=== PATIENT | female | born 1945 | race Caucasian/White ===

== ENCOUNTER 2018-11-16 08:45 | Inpatient (IN) | payer MEDICARE, BC ==
[~2018-11-16] VITALS: Ht 157.5 cm; Wt 80.9 kg
[~2018-11-16 08:45] MED LIST: BUPIVACAINE/PF 0.5% ONE; EPINEPHRINE 1 MG/ML, 1ML ONE; KETOROLAC 60 MG/2 ML ONE; LIDOCAINE 1%, 20ML ONE; ROPIvacaine/PF 0.2%, 20 ML ONE; SODIUM CHLORIDE 0.9% 50 ML ONE; TRANEXAMIC ACID 100 MG/ML, 10ML ONE; VANCOMYCIN 1,000 MG ONE
[2018-11-16] MEDS ORDERED: VANCOMYCIN PER PHARMACY MC STA (12:02)
[2018-11-16] MEDS ORDERED: ACETAMINOPHEN 500 MG TABLET PO ONE (12:30)
[2018-11-16] MEDS ORDERED: LACTATED RINGERS 1,000 ML IV SCH (12:30)
[2018-11-16] MEDS ORDERED: GABAPENTIN 300 MG CAPSULE PO ONE (12:30)
[2018-11-16] MEDS ORDERED: METF500T17 PO (12:45)
[2018-11-16] MEDS ORDERED: TRAZADONE PO (12:45)
[2018-11-16] MEDS ORDERED: TOPI25TA32 PO (12:45)
[2018-11-16] MEDS ORDERED: FLUO40CA9 PO (12:45)
[2018-11-16] MEDS ORDERED: CEPH-368 PO (12:45)
[2018-11-16] MEDS ORDERED: ATOR20TA86 PO (12:45)
[2018-11-16] MEDS ORDERED: MELO7.5T31 PO (12:45)
[2018-11-16] MEDS ORDERED: DOCU240C53 PO (12:45)
[2018-11-16] MEDS ORDERED: TRAM50TA2 PO (12:45)
[2018-11-16] MEDS ORDERED: RANI150T23 PO (12:45)
[2018-11-16] MEDS ORDERED: SULF1TAB24 PO (12:45)
[2018-11-16] MEDS ORDERED: LISI5TAB7 PO (12:45)
[2018-11-16] MEDS ORDERED: FENO43CA3 PO (12:45)
[2018-11-16] MEDS ORDERED: ACET500T76 PO (12:45)
[2018-11-16] MEDS ORDERED: ASPI-496 PO (12:45)
[2018-11-16 12:55] VITALS: BP 146/72
[2018-11-16] MEDS ORDERED: VANCOMYCIN 1,500 MG in SODIUM CHLORIDE 0.9% 250 ML IV ONE (13:00)
[2018-11-16] MEDS ORDERED: MIDAZOLAM 1 MG/ML, 2ML ONE (14:21)
[2018-11-16] MEDS ORDERED: FENTANYL PF 250 MCG/5ML ONE (14:22)
[2018-11-16] MEDS ORDERED: METHYLENE BLUE 50 MG/10 ML AMP ONE (14:29)
[2018-11-16] MEDS ORDERED: VANCOMYCIN 1,000 MG ONE (14:55)
[2018-11-16] MEDS ORDERED: CEFAZOLIN 1,000 MG ONE (15:28)
[2018-11-16] MEDS ORDERED: PROPOFOL 10 MG/ML, 20ML ONE (15:28)
[2018-11-16] MEDS ORDERED: DEXAMETHASONE 4 MG/ML, 5ML ONE (15:28)
[2018-11-16] MEDS ORDERED: ONDANSETRON 2MG/ML, 2ML ONE (15:28)
[2018-11-16] MEDS ORDERED: SUCCINYLCHOLINE 20 MG/ML, 10ML ONE (15:28)
[2018-11-16] MEDS ORDERED: ROCURONIUM 10 MG/ML,10ML ONE (15:28)
[2018-11-16] MEDS ORDERED: LORazepam 2 MG/ML, 1ML IVPush PRN (16:00)
[2018-11-16] MEDS ORDERED: hydrALAzine 20 MG/ML, 1ML IV PRN (16:00)
[2018-11-16] MEDS ORDERED: MORPHINE SULFATE 4 MG/ML, 1ML IVPush PRN (16:00)
[2018-11-16] MEDS ORDERED: LABETALOL 5MG/ML, 20ML IV PRN (16:00)
[2018-11-16] MEDS ORDERED: MEPERIDINE/PF 25MG/0.5ML IVPush PRN (16:00)
[2018-11-16] MEDS ORDERED: FENTANYL PF 100 MCG/2ML IV PRN (16:00)
[2018-11-16] MEDS ORDERED: OXYcodone 5 MG/5 ML ORAL.SOL UDC PO PRN (16:00)
[2018-11-16] MEDS ORDERED: METOCLOPRAMIDE 5 MG/ML, 2ML IV PRN (16:00)
[2018-11-16] MEDS ORDERED: VANCOMYCIN 1,000 MG IM ONE (16:24)
[2018-11-16] MEDS: SODIUM CHLORIDE 0.9% 1,000 ML IV SCH (17:54)
[2018-11-16] MEDS ORDERED: HYDROcodone/APAP 5/325 TABLET PO PRN (18:00)
[2018-11-16] MEDS ORDERED: LORazepam 1MG TABLET PO PRN (18:00)
[2018-11-16] MEDS ORDERED: HYDROmorphone 1 MG/ML, 1ML INJ IV PRN (18:00)
[2018-11-16] MEDS ORDERED: BISACODYL 10 MG SUPP PR PRN (18:00)
[2018-11-16] MEDS ORDERED: ZOLPIDEM 5MG TABLET PO PRN (18:00)
[2018-11-16] MEDS ORDERED: ALUMINUM/MAG/SIMETHICONE 30 ML UDC PO PRN (18:00)
[2018-11-16] MEDS ORDERED: DIAZEPAM 5 MG TABLET PO PRN (18:00)
[2018-11-16] MEDS ORDERED: PROMETHAZINE 25 MG/ML, 1ML IM PRN (18:00)
[2018-11-16] MEDS ORDERED: SENNA/DOCUSATE TABLET PO PRN (18:00)
[2018-11-16] MEDS ORDERED: ONDANSETRON 4 MG TABLET PO PRN (18:00)
[2018-11-16] MEDS ORDERED: MAGNESIUM HYDROXIDE 8%, 30ML UDC PO PRN (18:00)
[2018-11-16] MEDS ORDERED: PROMETHAZINE 12.5 MG SUPP PR PRN (18:00)
[2018-11-16] MEDS ORDERED: DIPHENHYDRAMINE 25 MG CAPSULE PO PRN (18:00)
[2018-11-16] MEDS ORDERED: ONDANSETRON 2MG/ML, 2ML IV PRN (18:00)
[2018-11-16] MEDS ORDERED: ACETAMINOPHEN 650 MG/20.3 ML UDC PO PRN (18:00)
[2018-11-16] MEDS ORDERED: VANCOMYCIN PER PHARMACY MC PRN (18:00)
[2018-11-16] MEDS ORDERED: TRANEXAMIC ACID 1,000 MG in SODIUM CHLORIDE 0.9% 100 ML IVPB ONE (18:15)
[2018-11-16] MEDS ORDERED: OXYcodone 5 MG/5 ML ORAL.SOL UDC ONE (18:21)
[2018-11-16] MEDS ORDERED: FENTANYL PF 100 MCG/2ML ONE (18:21)
[2018-11-16] MEDS ORDERED: PHARMACOKINETIC MONITORING MC PRN (19:00)
[2018-11-16] MEDS: FLUOXETINE HCL 20 MG CAPSULE PO SCH (19:25)
[2018-11-16] MEDS ORDERED: ASPIRIN 81 MG TABLET CHEW ONE (20:31)
[2018-11-16] MEDS: DOCUSATE 100 MG CAPSULE PO SCH (20:34)
[2018-11-16] MEDS: ASPIRIN 81 MG TABLET EC PO SCH (20:35)
[2018-11-16] MEDS: CEFAZOLIN PMX 2GM/50ML 50 ML IVPB SCH (23:33)
[2018-11-16 23:58] VITALS: BP 99/68
[2018-11-17 03:52] VITALS: BP 102/67
[2018-11-17] MEDS: ASPIRIN 81 MG TABLET EC PO SCH ×2 (06:01→18:43)
[2018-11-17] MEDS: SODIUM CHLORIDE 0.9% 1,000 ML IV SCH ×2 (06:30→20:34)
[2018-11-17 07:00] VITALS: BP 149/61
[2018-11-17] MEDS: CEFAZOLIN PMX 2GM/50ML 50 ML IVPB SCH ×3 (08:00→23:39)
[2018-11-17] MEDS: DOCUSATE 100 MG CAPSULE PO SCH ×2 (08:00→20:50)
[2018-11-17] MEDS: LISINOPRIL 5 MG TABLET PO SCH (08:00)
[2018-11-17] MEDS: FLUOXETINE HCL 20 MG CAPSULE PO SCH (08:01)
[2018-11-17] MEDS: MULTIVITAMINS/MINERALS TABLET PO SCH (08:01)
[2018-11-17] MEDS: ATORVASTATIN 20 MG TABLET PO SCH (08:01)
[2018-11-17] MEDS: metFORMIN 500 MG TABLET PO SCH (08:01)
[2018-11-17] MEDS: TOPIRAMATE 25 MG TABLET PO SCH (08:01)
[2018-11-17] MEDS ORDERED: VANCOMYCIN 1,400 MG in SODIUM CHLORIDE 0.9% 250 ML IV SCH (13:00)
[2018-11-17 14:16] VITALS: BP 134/70
[2018-11-17] MEDS: KETOROLAC 30 MG/1 ML IV SCH (18:43)
[2018-11-17] MEDS: OXYcodone IR 5MG TABLET PO PRN ×2 (18:44→22:47)
[2018-11-17 20:00] VITALS: BP 148/61
[2018-11-17] MEDS ORDERED: TRAZODONE 150MG TABLET PO PRN (22:30)
[2018-11-18] MEDS: KETOROLAC 30 MG/1 ML IV SCH ×2 (01:45→10:11)
[2018-11-18 02:00] VITALS: BP 132/65
[2018-11-18] MEDS: ASPIRIN 81 MG TABLET EC PO SCH ×2 (05:51→18:18)
[2018-11-18] MEDS: OXYcodone IR 5MG TABLET PO PRN ×5 (05:51→20:06)
[2018-11-18 07:02] VITALS: BP 142/73
[2018-11-18] MEDS: FLUOXETINE HCL 20 MG CAPSULE PO SCH (08:18)
[2018-11-18] MEDS: CEFAZOLIN PMX 2GM/50ML 50 ML IVPB SCH (08:18)
[2018-11-18] MEDS: ATORVASTATIN 20 MG TABLET PO SCH (08:18)
[2018-11-18] MEDS: MULTIVITAMINS/MINERALS TABLET PO SCH (08:18)
[2018-11-18] MEDS: metFORMIN 500 MG TABLET PO SCH (08:19)
[2018-11-18] MEDS: LISINOPRIL 5 MG TABLET PO SCH (08:19)
[2018-11-18] MEDS: TOPIRAMATE 25 MG TABLET PO SCH (08:19)
[2018-11-18] MEDS: DOCUSATE 100 MG CAPSULE PO SCH ×2 (08:19→20:05)
[2018-11-18] MEDS: SODIUM CHLORIDE 0.9% 1,000 ML IV SCH ×2 (09:54→20:05)
[2018-11-18 11:08] LABS: BASOPHILS # (AUTO) 0.06 x10^3/uL (0-0.1); BASOPHILS % (AUTO) 1 % (0-1); EOSINOPHILS # (AUTO) 0.11 x10^3/uL (0-0.4); EOSINOPHILS % (AUTO) 1 % (1-7); LYMPHOCYTES # (AUTO) 1.42 x10^3/uL (1-3.4); LYMPHOCYTES % (AUTO) 16 % (22-44); MD NO; MEAN CORPUSCULAR HEMOGLOBIN 27.7 pg (27.0-34.8); MEAN CORPUSCULAR VOLUME 83.8 fL (80-100); MEAN PLATELET VOLUME 7.2 fL (7.4-10.4); MONOCYTES # (AUTO) 1.15 x10^3/uL (0.2-0.8); MONOCYTES % (AUTO) 13 % (2-9); NEUTROPHILS # (AUTO) 6.37 x10^3/uL (1.8-6.8); NEUTROPHILS % (AUTO) 70 % (42-75); PLATELET COUNT 401 x10^3/uL (130-400); RED BLOOD COUNT 2.95 x10^6/uL (3.82-5.3); RED CELL DISTRIBUTION WIDTH 17.3 % (9.6-15.2)
[2018-11-18 12:10] LABS: HEMOGLOBIN A1C 6.6 % (4.2-6.3)
[2018-11-18 13:25] VITALS: BP 135/86
[2018-11-18 20:09] VITALS: BP 140/77
[2018-11-19 02:32] VITALS: BP 149/71
[2018-11-19] MEDS: ASPIRIN 81 MG TABLET EC PO SCH ×2 (04:56→17:37)
[2018-11-19 06:17] LABS: ALANINE AMINOTRANSFERASE 20 U/L (12-78); ALBUMIN 2.6 g/dL (3.4-5.0); ANION GAP 7 mmol/L (5-15); CALCIUM 8.4 mg/dL (8.5-10.1); CHLORIDE 109 mmol/L (98-107)
[2018-11-19 06:26] LABS: ALKALINE PHOSPHATASE 80 U/L (45-117); BILIRUBIN,TOTAL 0.3 mg/dL (0.2-1.0); TOTAL PROTEIN 6.2 g/dL (6.4-8.2)
[2018-11-19 06:37] VITALS: BP 168/71
[2018-11-19 08:13] LABS: HCT (SEDRATE) 25.6 % (34.6-47.8)
[2018-11-19] MEDS: OXYcodone IR 5MG TABLET PO PRN ×3 (08:15→19:52)
[2018-11-19] MEDS: metFORMIN 500 MG TABLET PO SCH (08:16)
[2018-11-19] MEDS: FLUOXETINE HCL 20 MG CAPSULE PO SCH (08:16)
[2018-11-19] MEDS: LISINOPRIL 5 MG TABLET PO SCH (08:16)
[2018-11-19] MEDS: ATORVASTATIN 20 MG TABLET PO SCH (08:16)
[2018-11-19] MEDS: DOCUSATE 100 MG CAPSULE PO SCH ×2 (08:17→19:52)
[2018-11-19] MEDS: MULTIVITAMINS/MINERALS TABLET PO SCH (08:17)
[2018-11-19] MEDS: TOPIRAMATE 25 MG TABLET PO SCH (08:17)
[2018-11-19] MEDS ORDERED: ASPI81TA45 PO (09:02)
[2018-11-19] MEDS ORDERED: DOCU-131 PO (09:03)
[2018-11-19] MEDS ORDERED: MELO7.5T5 PO (09:06)
[2018-11-19] MEDS ORDERED: ONDA4TAB13 SL (09:06)
[2018-11-19] MEDS ORDERED: OXYC5TAB3 PO (09:07)
[2018-11-19] MEDS: SODIUM CHLORIDE 0.9% 1,000 ML IV SCH ×2 (11:45→19:45)
[2018-11-19 13:01] VITALS: BP 111/64
[2018-11-19 18:32] VITALS: BP 144/68
[2018-11-20 00:36] VITALS: BP 135/73
[2018-11-20] MEDS: OXYcodone IR 5MG TABLET PO PRN ×3 (03:52→12:53)
[2018-11-20] MEDS: ASPIRIN 81 MG TABLET EC PO SCH (06:06)
[2018-11-20 08:00] VITALS: BP 176/67
[2018-11-20 08:40] VITALS: BP 145/69
[2018-11-20] MEDS: MULTIVITAMINS/MINERALS TABLET PO SCH (08:47)
[2018-11-20] MEDS: ATORVASTATIN 20 MG TABLET PO SCH (08:47)
[2018-11-20] MEDS: metFORMIN 500 MG TABLET PO SCH (08:48)
[2018-11-20] MEDS: FLUOXETINE HCL 20 MG CAPSULE PO SCH (08:48)
[2018-11-20] MEDS: TOPIRAMATE 25 MG TABLET PO SCH (08:48)
[2018-11-20] MEDS: DOCUSATE 100 MG CAPSULE PO SCH (08:48)
[2018-11-20] MEDS: LISINOPRIL 5 MG TABLET PO SCH (08:49)
[2018-11-20 12:39] VITALS: BP 101/66
== END 2018-11-20 13:00 | DRG 468 ==
LOC: ORIP 11:39 → 4NOR 19:20
PROVIDERS: ADMIT Orthopaedic Surgery; ATTEND Orthopaedic Surgery
PROC: 0SRC0EZ Replacement of Right Knee Joint with Articulating Spacer, Open Approach (ICD-10-PCS; 2018-11-16)
PROC: 0SPC0JZ Removal of Synthetic Substitute from Right Knee Joint, Open Approach (ICD-10-PCS; principal; 2018-11-16 14:45)
DX: T84.092A Other mechanical complication of internal right knee prosthesis, initial encounter (principal); Z96.651 Presence of right artificial knee joint; B95.8 Unspecified staphylococcus as the cause of diseases classified elsewhere; E11.9 Type 2 diabetes mellitus without complications; E78.5 Hyperlipidemia, unspecified; K21.9 Gastro-esophageal reflux disease without esophagitis; I25.10 Atherosclerotic heart disease of native coronary artery without angina pectoris; F17.210 Nicotine dependence, cigarettes, uncomplicated; F32.9 Major depressive disorder, single episode, unspecified; Y79.2 Prosthetic and other implants, materials and accessory orthopedic devices associated with adverse incidents; I10 Essential (primary) hypertension; Z79.2 Long term (current) use of antibiotics; Z83.3 Family history of diabetes mellitus; Z90.710 Acquired absence of both cervix and uterus; Z98.1 Arthrodesis status
CPT/HCPCS: 36415; 80053; 82565; 82962; 83036; 84520; 85014; 85018; 85025; 85651; 86140; 87015; 87070; 87075; 87102; 87116; 87205; 87206; 93005; C1713; G0378; J0171; J0690; J1100; J1885; J2250; J2405; J2704; J2795; J3010; J3370; J3490; Q9968; C1776; J0330; J7050

== ENCOUNTER → 2019-01-27 | Outpatient (CLI) | payer MEDICARE, BC ==
[~2019-01-27] MED LIST changes: +ACET500T76 PO; +ASPI-496 PO; +ASPI81TA45 PO; +ATOR20TA86 PO; -BUPIVACAINE/PF 0.5% ONE; +CEPH-368 PO; +DOCU-131 PO; +DOCU240C53 PO; -EPINEPHRINE 1 MG/ML, 1ML ONE; +FENO43CA3 PO; +FLUO40CA9 PO; -KETOROLAC 60 MG/2 ML ONE; -LIDOCAINE 1%, 20ML ONE; +LISI5TAB7 PO; +MELO7.5T31 PO; +MELO7.5T5 PO; +METF500T17 PO; +ONDA4TAB13 SL; +OXYC5CAP2 PO; +OXYC5TAB3 PO; +RANI150T23 PO; +SENN1TAB67 PO; +SULF1TAB24 PO; +TOPI25TA32 PO; +TRAM50TA2 PO; +TRAZ150T62 PO; +TRAZADONE PO; -VANCOMYCIN 1,000 MG ONE
[2019-01-27 09:14] LABS: BASOPHILS # (AUTO) 0.02 x10^3/uL (0-0.1); BASOPHILS % (AUTO) 0 % (0-1); EOSINOPHILS # (AUTO) 0.09 x10^3/uL (0-0.4); EOSINOPHILS % (AUTO) 1 % (1-7); LYMPHOCYTES # (AUTO) 2.22 x10^3/uL (1-3.4); LYMPHOCYTES % (AUTO) 23 % (22-44); MD NO; MEAN CORPUSCULAR HEMOGLOBIN 25.1 pg (27.0-34.8); MEAN CORPUSCULAR HGB CONC 30.8 g/dL (32.4-35.8); MEAN CORPUSCULAR VOLUME 81.4 fL (80-100); MEAN PLATELET VOLUME 6.6 fL (7.4-10.4); MONOCYTES # (AUTO) 0.78 x10^3/uL (0.2-0.8); MONOCYTES % (AUTO) 8 % (2-9); NEUTROPHILS # (AUTO) 6.74 x10^3/uL (1.8-6.8); NEUTROPHILS % (AUTO) 69 % (42-75); PLATELET COUNT 535 x10^3/uL (130-400); RED CELL DISTRIBUTION WIDTH 18.9 % (9.6-15.2)
[2019-01-27 09:24] LABS: INTERNATIONAL NORMALIZED RATIO 1.02 (0.93-1.1); PROTHROMBIN TIME 10.7 Seconds (9.6-11.5)
[2019-01-27 09:26] LABS: ALANINE AMINOTRANSFERASE 14 U/L (12-78); ALBUMIN 3.5 g/dL (3.4-5.0); ANION GAP 6 mmol/L (5-15); CALCIUM 9.1 mg/dL (8.5-10.1); CHLORIDE 108 mmol/L (98-107); CREATININE 0.72 mg/dL (0.55-1.02)
[2019-01-27 09:28] LABS: ALKALINE PHOSPHATASE 108 U/L (45-117); BILIRUBIN,TOTAL 0.2 mg/dL (0.2-1.0); TOTAL PROTEIN 7.1 g/dL (6.4-8.2)
[2019-01-27 10:23] LABS: HEMOGLOBIN A1C 6.8 % (4.2-6.3)
== END | disposition home or self-care (01) ==
LOC: STAR 07:58
PROVIDERS: ATTEND Orthopaedic Surgery
DX: Z01.818 Encounter for other preprocedural examination (principal); T84.84XA Pain due to internal orthopedic prosthetic devices, implants and grafts, initial encounter; Z96.651 Presence of right artificial knee joint; K21.9 Gastro-esophageal reflux disease without esophagitis; Z79.899 Other long term (current) drug therapy
CPT/HCPCS: 36415; 80053; 83036; 85025; 85610; 85730; 87081; 87806; G0475

== ENCOUNTER 2019-02-01 12:15 | Inpatient (IN) | payer MEDICARE, BC ==
[~2019-02-01] VITALS: Ht 157.5 cm; Wt 73.1 kg
[~2019-02-01 12:15] MED LIST changes: -ROPIvacaine/PF 0.2%, 20 ML ONE; -SODIUM CHLORIDE 0.9% 50 ML ONE; -TRANEXAMIC ACID 100 MG/ML, 10ML ONE; -TRAZ150T62 PO
[2019-02-01] MEDS ORDERED: VANCOMYCIN 1,400 MG in SODIUM CHLORIDE 0.9% 250 ML IV ONE (14:18)
[2019-02-01] MEDS ORDERED: PHARMACOKINETIC CONSULTATION MC ONE (14:30)
[2019-02-01] MEDS ORDERED: VANCOMYCIN PER PHARMACY MC PRN ×2 (14:30→17:00)
[2019-02-01] MEDS ORDERED: LACTATED RINGERS 1,000 ML IV SCH (14:43)
[2019-02-01] MEDS ORDERED: GABAPENTIN 300 MG CAPSULE PO STA (14:43)
[2019-02-01] MEDS ORDERED: ACETAMINOPHEN 500 MG TABLET PO STA (14:43)
[2019-02-01] MEDS ORDERED: TRAZ150T62 PO (14:57)
[2019-02-01] MEDS ORDERED: MIDAZOLAM 1 MG/ML, 2ML ONE (16:37)
[2019-02-01] MEDS ORDERED: FENTANYL PF 100 MCG/2ML ONE (16:37)
[2019-02-01] MEDS ORDERED: SENNA/DOCUSATE TABLET PO PRN (17:00)
[2019-02-01] MEDS ORDERED: ALUMINUM/MAG/SIMETHICONE 30 ML UDC PO PRN (17:00)
[2019-02-01] MEDS ORDERED: ACETAMINOPHEN 650 MG/20.3 ML UDC PO PRN (17:00)
[2019-02-01] MEDS ORDERED: DIPHENHYDRAMINE 25 MG CAPSULE PO PRN (17:00)
[2019-02-01] MEDS ORDERED: ONDANSETRON 2MG/ML, 2ML IV PRN (17:00)
[2019-02-01] MEDS ORDERED: POLYETHYLENE GLYCOL 17 GM PACKET PO PRN (17:00)
[2019-02-01] MEDS ORDERED: KETOROLAC 30 MG/1 ML IV SCH (17:00)
[2019-02-01] MEDS ORDERED: DEXAMETHASONE 4 MG/ML, 1ML IVPush SCH (17:00)
[2019-02-01] MEDS ORDERED: CEFAZOLIN PMX 1GM/50ML 50 ML IVPB SCH (17:00)
[2019-02-01] MEDS ORDERED: PROMETHAZINE 25 MG/ML, 1ML IM PRN (17:00)
[2019-02-01] MEDS ORDERED: DIPHENHYDRAMINE 50 MG/ML, 1ML IVPush PRN (17:00)
[2019-02-01] MEDS ORDERED: ONDANSETRON 4 MG TABLET PO PRN (17:00)
[2019-02-01] MEDS ORDERED: TRANEXAMIC ACID 1,000 MG in SODIUM CHLORIDE 0.9% 100 ML IVPB ONE (17:00)
[2019-02-01] MEDS ORDERED: PSYLLIUM PACKET PO PRN (17:00)
[2019-02-01] MEDS ORDERED: OXYcodone IR 5MG TABLET PO PRN (17:00)
[2019-02-01] MEDS ORDERED: MORPHINE SULFATE 4 MG/ML, 1ML IVPush PRN (17:00)
[2019-02-01] MEDS ORDERED: MAGNESIUM HYDROXIDE 8%, 30ML UDC PO PRN (17:00)
[2019-02-01] MEDS ORDERED: hydrALAzine 20 MG/ML, 1ML IVPush PRN (17:30)
[2019-02-01] MEDS ORDERED: DOCUSATE 100 MG CAPSULE PO PRN (17:30)
[2019-02-01] MEDS ORDERED: BISACODYL 10 MG SUPP PR PRN (17:30)
[2019-02-01] MEDS ORDERED: ONDANSETRON ODT 4 MG PO PRN (17:30)
[2019-02-01] MEDS ORDERED: ENOXAPARIN 40 MG/0.4 ML SQ SCH (17:30)
[2019-02-01] MEDS ORDERED: ONDANSETRON 2MG/ML, 2ML IVPush PRN (17:30)
[2019-02-01] MEDS ORDERED: LIDODERM 5% PATCH TD PRN (17:30)
[2019-02-01] MEDS ORDERED: ACETAMINOPHEN 325 MG TABLET PO PRN (17:30)
[2019-02-01] MEDS ORDERED: hydrALAzine 20 MG/ML, 1ML ONE (17:43)
[2019-02-01 19:04] LABS: HCT (SEDRATE) 35.9 % (34.6-47.8)
[2019-02-01 19:26] LABS: FREE T4 (FREE THYROXINE) 1.07 ng/dL (0.76-1.46); THYROID STIMULATING HORMONE 0.999 mIU/L (0.358-3.740)
[2019-02-01 19:29] VITALS: BP 199/83
[2019-02-01] MEDS: LISINOPRIL 5 MG TABLET PO SCH (19:34)
[2019-02-01] MEDS: FAMOTIDINE 20 MG TABLET PO SCH (19:35)
[2019-02-01] MEDS: DOCUSATE 100 MG CAPSULE PO SCH (19:35)
[2019-02-01 19:36] LABS: HEMOGLOBIN A1C 6.9 % (4.2-6.3)
[2019-02-01] MEDS: INSULIN LISPRO 100 UNITS/ML, PEN SQ-INSULIN SCH (19:38)
[2019-02-01 19:59] VITALS: BP 177/78
[2019-02-01 20:26] VITALS: BP 166/80
[2019-02-01] MEDS ORDERED: GABAPENTIN 300 MG CAPSULE PO SCH (21:00)
[2019-02-01] MEDS ORDERED: ATORVASTATIN 20 MG TABLET PO SCH (21:00)
[2019-02-01] MEDS ORDERED: ASPIRIN 81 MG TABLET EC PO SCH (21:00)
[2019-02-01] MEDS ORDERED: ZOLPIDEM 5MG TABLET PO PRN (21:00)
[2019-02-01] MEDS ORDERED: TRAZODONE 150MG TABLET PO SCH (21:00)
[2019-02-01] MEDS: POTASSIUM CHLORIDE 20 MEQ in D5%-0.45% NACL 1,000 ML IV SCH (21:41)
[2019-02-01 22:00] VITALS: BP 147/74
[2019-02-01 23:01] VITALS: BP 168/79
[2019-02-02 02:36] VITALS: BP 131/55
[2019-02-02] MEDS: POTASSIUM CHLORIDE 20 MEQ in D5%-0.45% NACL 1,000 ML IV SCH ×2 (02:41→12:47)
[2019-02-02 05:27] LABS: BASOPHILS # (AUTO) 0.03 x10^3/uL (0-0.1); BASOPHILS % (AUTO) 0 % (0-1); EOSINOPHILS # (AUTO) 0.13 x10^3/uL (0-0.4); EOSINOPHILS % (AUTO) 2 % (1-7); LYMPHOCYTES # (AUTO) 1.47 x10^3/uL (1-3.4); LYMPHOCYTES % (AUTO) 19 % (22-44); MD NO; MEAN CORPUSCULAR HEMOGLOBIN 24.8 pg (27.0-34.8); MEAN CORPUSCULAR HGB CONC 30.7 g/dL (32.4-35.8); MEAN CORPUSCULAR VOLUME 80.8 fL (80-100); MEAN PLATELET VOLUME 6.9 fL (7.4-10.4); MONOCYTES # (AUTO) 0.78 x10^3/uL (0.2-0.8); MONOCYTES % (AUTO) 10 % (2-9); NEUTROPHILS % (AUTO) 70 % (42-75); PLATELET COUNT 507 x10^3/uL (130-400); RED BLOOD COUNT 4.35 x10^6/uL (3.82-5.3); RED CELL DISTRIBUTION WIDTH 19.2 % (9.6-15.2)
[2019-02-02 05:30] LABS: ALBUMIN 3.2 g/dL (3.4-5.0); ANION GAP 2 mmol/L (5-15); CALCIUM 8.6 mg/dL (8.5-10.1); CHLORIDE 112 mmol/L (98-107)
[2019-02-02 05:34] LABS: CHOL/HDL RATIO 3.2; CHOLESTEROL, TOTAL 155 mg/dL (140-239); CREATININE 0.64 mg/dL (0.55-1.02); HDL CHOL % 31 % (28-40); HDL CHOLESTEROL (DIRECT) 48 mg/dL (40-60); LDL CHOLESTEROL,CALCULATED 77 mg/dL (54-169); LDL/HDL RATIO 1.6 (0.5-3.0); TRIGLYCERIDES 151 mg/dL (50-200); VLDL CHOLESTEROL 30 mg/dL (0-25)
[2019-02-02 06:52] VITALS: BP 134/58
[2019-02-02] MEDS: INSULIN LISPRO 100 UNITS/ML, PEN SQ-INSULIN SCH ×2 (07:00→11:00)
[2019-02-02] MEDS: LISINOPRIL 5 MG TABLET PO SCH (07:50)
[2019-02-02] MEDS: FAMOTIDINE 20 MG TABLET PO SCH (07:50)
[2019-02-02] MEDS: DOCUSATE 100 MG CAPSULE PO SCH (07:56)
[2019-02-02] MEDS ORDERED: metFORMIN 500 MG TABLET PO SCH (08:00)
[2019-02-02] MEDS ORDERED: TAMSULOSIN 0.4 MG CAP.ER.24H PO SCH (09:00)
[2019-02-02] MEDS ORDERED: FENOFIBRATE 54 MG TABLET PO SCH (09:00)
[2019-02-02 13:41] VITALS: BP 130/62
== END 2019-02-02 14:11 | disposition home health service (06) | DRG 304 ==
LOC: ORIP 13:44 → 4EST 18:47
PROVIDERS: ADMIT Orthopaedic Surgery; ATTEND Orthopaedic Surgery
DX: I16.0 Hypertensive urgency (principal); J96.01 Acute respiratory failure with hypoxia; I10 Essential (primary) hypertension; Z47.33 Aftercare following explantation of knee joint prosthesis; E11.9 Type 2 diabetes mellitus without complications; E78.5 Hyperlipidemia, unspecified; J44.9 Chronic obstructive pulmonary disease, unspecified; Z53.9 Procedure and treatment not carried out, unspecified reason; Z98.1 Arthrodesis status; Z83.3 Family history of diabetes mellitus
CPT/HCPCS: 36415; 80048; 80061; 82040; 82962; 83036; 83690; 84439; 84443; 85025; 85651; G0378; J1650; J2250; J2795; J3010; J3370; J0360; J7050; J7120

== ENCOUNTER 2019-03-11 14:02 | Outpatient (CLI) | payer BC, MEDICARE ==
[~2019-03-11 14:02] MED LIST changes: +RANI-467 PO; -RANI150T23 PO; +TRAZ150T62 PO
[2019-03-11] MEDS ORDERED: LISI40TA PO (15:29)
[2019-03-11] MEDS ORDERED: FENO200C PO (15:29)
[2019-03-11] MEDS ORDERED: AMLO5TAB4 PO (15:29)
[2019-03-11] MEDS ORDERED: HYDR-3341 PO (15:29)
[2019-03-11] MEDS ORDERED: ONDA4TAB13 SL (15:29)
[2019-03-11 15:39] LABS: ALANINE AMINOTRANSFERASE 17 U/L (12-78); ALBUMIN 3.5 g/dL (3.4-5.0); ANION GAP 5 mmol/L (5-15); CALCIUM 8.6 mg/dL (8.5-10.1); CHLORIDE 110 mmol/L (98-107); CREATININE 0.88 mg/dL (0.55-1.02)
[2019-03-11 15:41] LABS: ALKALINE PHOSPHATASE 85 U/L (45-117); BILIRUBIN,TOTAL 0.5 mg/dL (0.2-1.0); MEAN CORPUSCULAR HEMOGLOBIN 25.8 pg (27.0-34.8); MEAN CORPUSCULAR HGB CONC 31.3 g/dL (32.4-35.8); MEAN CORPUSCULAR VOLUME 82.6 fL (80-100); MEAN PLATELET VOLUME 6.9 fL (7.4-10.4); PLATELET COUNT 471 x10^3/uL (130-400); RED CELL DISTRIBUTION WIDTH 22.5 % (9.6-15.2)
[2019-03-11 15:49] LABS: INTERNATIONAL NORMALIZED RATIO 1.01 (0.93-1.1); PROTHROMBIN TIME 10.6 Seconds (9.6-11.5)
[2019-03-11 15:58] LABS: HEMOGLOBIN A1C 6.6 % (4.2-6.3)
[2019-03-11 16:06] LABS: BASOPHILS # (AUTO) 0.05 x10^3/uL (0-0.1); BASOPHILS % (AUTO) 1 % (0-1); EOSINOPHILS # (AUTO) 0.13 x10^3/uL (0-0.4); EOSINOPHILS % (AUTO) 1 % (1-7); LYMPHOCYTES # (AUTO) 2.81 x10^3/uL (1-3.4); LYMPHOCYTES % (AUTO) 31 % (22-44); MD SCAN; MONOCYTES # (AUTO) 0.86 x10^3/uL (0.2-0.8); MONOCYTES % (AUTO) 9 % (2-9); NEUTROPHILS # (AUTO) 5.34 x10^3/uL (1.8-6.8); NEUTROPHILS % (AUTO) 58 % (42-75)
== END 2019-03-11 23:59 | disposition home or self-care (01) ==
LOC: STAR 14:02
PROVIDERS: ATTEND Orthopaedic Surgery
DX: Z01.818 Encounter for other preprocedural examination (principal); T84.84XA Pain due to internal orthopedic prosthetic devices, implants and grafts, initial encounter; Z96.651 Presence of right artificial knee joint; Y83.9 Surgical procedure, unspecified as the cause of abnormal reaction of the patient, or of later complication, without mention of misadventure at the time of the procedure
CPT/HCPCS: 36415; 80053; 83036; 85025; 85610; 85730; 87806; 93005; G0475

== ENCOUNTER 2019-03-15 12:15 | Inpatient (IN) | payer MEDICARE, BC ==
[~2019-03-15] VITALS: Ht 157.5 cm; Wt 84.1 kg
[2019-03-17 14:55] VITALS: BP 141/61
== END 2019-03-17 15:00 | disposition home or self-care (01) | DRG 468 ==
LOC: ORIP 12:32 → 4NOR 23:06
PROVIDERS: ADMIT Orthopaedic Surgery; ATTEND Orthopaedic Surgery
PROC: 0SRC0J9 Replacement of Right Knee Joint with Synthetic Substitute, Cemented, Open Approach (ICD-10-PCS; principal; 2019-03-15)
PROC: 0SPC0JZ Removal of Synthetic Substitute from Right Knee Joint, Open Approach (ICD-10-PCS; 2019-03-15)
DX: T84.53XA Infection and inflammatory reaction due to internal right knee prosthesis, initial encounter (principal); E11.9 Type 2 diabetes mellitus without complications; Y83.8 Other surgical procedures as the cause of abnormal reaction of the patient, or of later complication, without mention of misadventure at the time of the procedure; Y92.89 Other specified places as the place of occurrence of the external cause; Z79.2 Long term (current) use of antibiotics; Z88.5 Allergy status to narcotic agent; Z88.8 Allergy status to other drugs, medicaments and biological substances
CPT/HCPCS: 36415; 82962; 85014; 85018; C1713; G0378; J0171; J0690; J1100; J1885; J2250; J2405; J2704; J2795; J3010; J3370; J3480; Q0162; C1762; C1776; J0360; J2270; J7050

== ENCOUNTER → 2019-08-26 | Outpatient (CLI) | payer BC, MEDICARE ==
[~2019-08-26] MED LIST changes: +AMLO5TAB4 PO; +CEPH500T PO; +FENO200C PO; +FLUO20TA25 PO; +HYDR-3341 PO; +LISI40TA PO; +PANT40TA5 PO; +PHEN37.53 PO; +SUCR1TAB PO; +UMEC1DIS INH; +VARE1TAB21 PO; +chantix
[2019-08-26 14:15] LABS: BASOPHILS # (AUTO) 0.05 x10^3/uL (0-0.1); BASOPHILS % (AUTO) 1 % (0-1); EOSINOPHILS # (AUTO) 0.17 x10^3/uL (0-0.4); EOSINOPHILS % (AUTO) 2 % (1-7); LYMPHOCYTES % (AUTO) 28 % (22-44); MD NO; MEAN CORPUSCULAR HGB CONC 32.5 g/dL (32.4-35.8); MEAN CORPUSCULAR VOLUME 92.1 fL (80-100); MEAN PLATELET VOLUME 7.1 fL (7.4-10.4); MONOCYTES # (AUTO) 0.74 x10^3/uL (0.2-0.8); MONOCYTES % (AUTO) 8 % (2-9); NEUTROPHILS # (AUTO) 5.38 x10^3/uL (1.8-6.8); NEUTROPHILS % (AUTO) 62 % (42-75); PLATELET COUNT 533 x10^3/uL (130-400); RED BLOOD COUNT 4.18 x10^6/uL (3.82-5.3); RED CELL DISTRIBUTION WIDTH 14.4 % (9.6-15.2)
[2019-08-26 14:26] LABS: PROTHROMBIN TIME 10.6 Seconds (9.6-11.5)
[2019-08-26 14:28] LABS: CHLORIDE 104 mmol/L (98-107)
[2019-08-26 14:35] LABS: ALANINE AMINOTRANSFERASE 15 U/L (12-78); ALBUMIN 3.6 g/dL (3.4-5.0); ALKALINE PHOSPHATASE 78 U/L (45-117); ANION GAP 10 mmol/L (5-15); BILIRUBIN,TOTAL 0.3 mg/dL (0.2-1.0); CALCIUM 8.7 mg/dL (8.5-10.1); CREATININE 0.84 mg/dL (0.55-1.02); TOTAL PROTEIN 7.2 g/dL (6.4-8.2)
== END | disposition home or self-care (01) ==
LOC: STAR 12:52
PROVIDERS: ATTEND Surgery
DX: Z01.810 Encounter for preprocedural cardiovascular examination (principal); I65.22 Occlusion and stenosis of left carotid artery
CPT/HCPCS: 36415; 71046; 80053; 85025; 85610; 85730; 93005

== ENCOUNTER 2019-08-30 05:49 | Inpatient (IN) | payer MEDICARE, BC ==
[~2019-08-30] VITALS: Ht 157.5 cm; Wt 74.8 kg
[~2019-08-30 05:49] MED LIST changes: -VARE1TAB21 PO
[2019-08-30] MEDS ORDERED: BUPIVACAINE/PF 0.5% ONE (06:56)
[2019-08-30] MEDS ORDERED: THROMBIN 20,000 UNIT VIAL TP ONE (06:57)
[2019-08-30] MEDS ORDERED: BACITRACIN 50,000 UNIT ONE (06:57)
[2019-08-30] MEDS ORDERED: HEPARIN 1,000 UNITS/ML, 10ML ONE (06:57)
[2019-08-30] MEDS ORDERED: EPINEPHRINE 1 MG/ML, 1ML ONE (06:57)
[2019-08-30] MEDS ORDERED: LACTATED RINGERS 1,000 ML IV SCH ×2 (06:57→12:30)
[2019-08-30] MEDS ORDERED: LIDOCAINE 1%, 20ML ONE (06:57)
[2019-08-30] MEDS ORDERED: PAPAVERINE 30 MG/ML, 2ML ONE (06:57)
[2019-08-30] MEDS ORDERED: PROTAMINE SULFATE 10 MG/ML, 5ML ONE (06:57)
[2019-08-30] MEDS ORDERED: LIDOCAINE-MPF 1%, 2ML INFIL ONE (07:00)
[2019-08-30] MEDS ORDERED: FENTANYL PF 250 MCG/5ML ONE (07:26)
[2019-08-30] MEDS ORDERED: VARE1TAB21 PO (07:26)
[2019-08-30] MEDS ORDERED: ROCURONIUM 10MG/ML,5ML ONE (07:27)
[2019-08-30] MEDS ORDERED: PROPOFOL 10 MG/ML, 20ML ONE (07:28)
[2019-08-30] MEDS ORDERED: SUCCINYLCHOLINE 20 MG/ML, 10ML ONE (07:29)
[2019-08-30] MEDS ORDERED: EPHEDRINE 50 MG/ML, 1ML IVPush PRN (08:30)
[2019-08-30] MEDS ORDERED: ONDANSETRON ODT 8 MG PO PRN (08:30)
[2019-08-30] MEDS ORDERED: LABETALOL 5MG/ML, 20ML IV PRN (08:30)
[2019-08-30] MEDS ORDERED: HALOPERIDOL 5 MG/ML IV PRN (08:30)
[2019-08-30] MEDS ORDERED: ONDANSETRON 2MG/ML, 2ML IV PRN ×2 (08:30→12:30)
[2019-08-30] MEDS ORDERED: PROMETHAZINE 25 MG/ML, 1ML IV PRN (08:30)
[2019-08-30] MEDS ORDERED: MEPERIDINE/PF 25MG/ML,1ML IVPush PRN (08:30)
[2019-08-30] MEDS ORDERED: PROMETHAZINE 12.5 MG SUPP PR PRN (08:30)
[2019-08-30] MEDS ORDERED: hydrALAzine 20 MG/ML, 1ML IV PRN (08:30)
[2019-08-30] MEDS ORDERED: OXYcodone 5 MG/5 ML ORAL.SOL UDC PO PRN (08:30)
[2019-08-30] MEDS ORDERED: DIAZEPAM 5 MG/ML, 2ML IVPush PRN (08:30)
[2019-08-30] MEDS ORDERED: MIDAZOLAM 1 MG/ML, 2ML IV PRN (08:30)
[2019-08-30] MEDS ORDERED: ALBUTEROL SULFATE 2.5 MG/3 ML NPPB PRN (08:30)
[2019-08-30] MEDS ORDERED: ACETAMINOPHEN 325 MG TABLET PO PRN ×2 (08:30→12:30)
[2019-08-30] MEDS ORDERED: MORPHINE SULFATE 4 MG/ML, 1ML IVPush PRN (08:30)
[2019-08-30] MEDS ORDERED: hydrALAzine 20 MG/ML, 1ML ONE (08:47)
[2019-08-30] MEDS ORDERED: SUGAMMADEX 200 MG/2 ML IVPush ONE (08:52)
[2019-08-30] MEDS ORDERED: FENTANYL PF 100 MCG/2ML ONE ×2 (08:53→09:25)
[2019-08-30] MEDS: FENTANYL PF 100 MCG/2ML IV PRN ×4 (09:26→11:08)
[2019-08-30] MEDS ORDERED: OXYcodone 5 MG/5 ML ORAL.SOL UDC ONE (09:50)
[2019-08-30] MEDS ORDERED: ACETAMINOPHEN 650 MG/20.3 ML UDC ONE (11:43)
[2019-08-30] MEDS ORDERED: ONDANSETRON ODT 4 MG PO PRN (12:30)
[2019-08-30] MEDS ORDERED: morphine SULFATE 10 MG/ML, 1ML IV PRN (12:30)
[2019-08-30] MEDS: HYDROcodone/APAP 5/325 TABLET PO PRN ×3 (12:54→21:21)
[2019-08-30] MEDS ORDERED: ENOXAPARIN 40 MG/0.4 ML SQ SCH (13:00)
[2019-08-30] MEDS ORDERED: CEFAZOLIN 1,000 MG ONE (14:54)
[2019-08-30] MEDS ORDERED: DEXAMETHASONE 4 MG/ML, 1ML ONE (14:54)
[2019-08-30] MEDS ORDERED: ONDANSETRON 2MG/ML, 2ML ONE (14:54)
[2019-08-30 15:15] VITALS: BP 149/50
[2019-08-30] MEDS: metFORMIN 500 MG TABLET PO SCH (17:05)
[2019-08-30] MEDS: SUCRALFATE 1 GM TABLET PO SCH ×2 (17:05→20:15)
[2019-08-30] MEDS: INSULIN REGULAR, HUMAN 100 UNIT/ML 3ML VIAL LOW DOSE SS SQ-INSULIN SCH ×2 (17:30→20:53)
[2019-08-30 19:45] VITALS: BP 97/66
[2019-08-30 20:14] VITALS: BP 112/58
[2019-08-30] MEDS: VARENICLINE 1MG TABLET PO SCH (20:15)
[2019-08-30] MEDS: BACLOFEN 10 MG TABLET PO SCH (20:16)
[2019-08-30] MEDS: CEPHALEXIN 500 MG CAPSULE PO SCH (20:16)
[2019-08-30] MEDS: SODIUM CHLORIDE FLUSH 10ML SYR IVF SCH (20:18)
[2019-08-30] MEDS ORDERED: TRAZODONE 150MG TABLET PO SCH (21:00)
[2019-08-30] MEDS ORDERED: ATORVASTATIN 20 MG TABLET PO SCH (21:00)
[2019-08-31 02:42] VITALS: BP 136/56
[2019-08-31] MEDS: HYDROcodone/APAP 5/325 TABLET PO PRN (02:48)
[2019-08-31] MEDS: BACLOFEN 10 MG TABLET PO SCH ×2 (05:51→11:19)
[2019-08-31 05:56] VITALS: BP 135/58
[2019-08-31] MEDS ORDERED: ASPIRIN 81 MG TABLET EC PO SCH (06:00)
[2019-08-31] MEDS ORDERED: PANTOPROZOLE 40MG TABLET PO SCH (06:00)
[2019-08-31] MEDS: SUCRALFATE 1 GM TABLET PO SCH ×2 (06:35→11:19)
[2019-08-31 07:46] VITALS: BP 99/64
[2019-08-31] MEDS: INSULIN REGULAR, HUMAN 100 UNIT/ML 3ML VIAL LOW DOSE SS SQ-INSULIN SCH ×2 (08:34→11:20)
[2019-08-31] MEDS: SODIUM CHLORIDE FLUSH 10ML SYR IVF SCH (08:35)
[2019-08-31] MEDS: metFORMIN 500 MG TABLET PO SCH (08:35)
[2019-08-31] MEDS: VARENICLINE 1MG TABLET PO SCH (08:35)
[2019-08-31] MEDS: CEPHALEXIN 500 MG CAPSULE PO SCH (08:35)
[2019-08-31] MEDS ORDERED: AMLODIPINE 5 MG TABLET PO SCH (09:00)
[2019-08-31] MEDS ORDERED: LISINOPRIL 40 MG TABLET PO SCH (09:00)
[2019-08-31] MEDS ORDERED: FENOFIBRATE MICRONIZED 200 MG HOMEMEDPO SCH (09:00)
[2019-08-31] MEDS ORDERED: FLUOXETINE HCL 20 MG CAPSULE PO SCH (09:00)
[2019-08-31 11:17] VITALS: BP 148/62
== END 2019-08-31 14:09 | disposition home or self-care (01) | DRG 39 ==
LOC: ORIP 06:36 → 4NE 11:50 → DCLOUNGE 08-31 13:50
PROVIDERS: ADMIT Surgery; ATTEND Surgery
PROC: 03UJ0KZ Supplement Left Common Carotid Artery with Nonautologous Tissue Substitute, Open Approach (ICD-10-PCS; 2019-08-30)
PROC: 03CL0ZZ Extirpation of Matter from Left Internal Carotid Artery, Open Approach (ICD-10-PCS; 2019-08-30)
PROC: 03CJ0ZZ Extirpation of Matter from Left Common Carotid Artery, Open Approach (ICD-10-PCS; principal; 2019-08-30 07:30)
DX: I65.22 Occlusion and stenosis of left carotid artery (principal); J44.9 Chronic obstructive pulmonary disease, unspecified; Z82.49 Family history of ischemic heart disease and other diseases of the circulatory system; Z83.3 Family history of diabetes mellitus
CPT/HCPCS: 82962; C1729; G0378; J0171; J0690; J1100; J1644; J1650; J1815; J2405; J2704; J2720; J3010; C1768; J0330; J0360; J2440; J7120